=== PATIENT | female | born 1945 | race Caucasian/White ===

== ENCOUNTER → 2017-05-16 | Outpatient (CLI) | payer OTHER, MEDICARE | LOC: M.RAD 09:44 | DX: Z12.31 Encounter for screening mammogram for malignant neoplasm of breast (principal) ==

== ENCOUNTER → 2018-06-03 | Outpatient (CLI) | payer OTHER, MEDICARE | LOC: M.RAD 10:59 | DX: Z12.31 Encounter for screening mammogram for malignant neoplasm of breast (principal) ==

== ENCOUNTER → 2019-08-26 | Outpatient (CLI) | payer OTHER, MEDICARE | LOC: M.RAD 06-05 10:00 | PROVIDERS: ATTEND Obstetrics & Gynecology Gynecology | DX: Z12.31 Encounter for screening mammogram for malignant neoplasm of breast (principal) ==

== ENCOUNTER → 2020-09-28 | Outpatient (CLI) | payer OTHER, MEDICARE | LOC: M.RAD 10:00 | PROVIDERS: ATTEND Obstetrics & Gynecology Gynecology | DX: Z12.31 Encounter for screening mammogram for malignant neoplasm of breast (principal); N64.89 Other specified disorders of breast ==